=== PATIENT | female | born 1960 | race Caucasian/White ===

== ENCOUNTER 2024-03-31 12:24 | Emergency (ER) | payer OTHER, SELFPAY ==
[2024-03-31 12:45] VITALS: BP 159/101; PULSE 88; RESP 16; TEMP 37.1; O2SAT 99
--- NOTE | 2024-03-31 13:07 | ED.DENTAL ---
HPI - Dental/Oral General Chief complaint: Dental/Oral Stated complaint: right side toothache,nauseated Time Seen by Provider: 03/31/24 12:59 Source: patient and RN notes reviewed Mode of arrival: ambulatory Limitations: no limitations History of Present Illness HPI Narrative: Patient presents today complaining of right lower tooth and jaw pain x3 days. States she does have crown in this area as well as a chipped tooth that may be the culprit. Denies fever, shortness of breath, difficulty swallowing. She currently rates her pain 5/10 and has taken ibuprofen with some relief. She will call her dentist on Tuesday to schedule a follow-up appointment. Related Data Home Medications Medication Instructions Recorded Confirmed atorvastatin 20 mg tablet 20 mg PO DAILY 03/31/24 03/31/24 hydrochlorothiazide 25 mg tablet 25 mg PO DAILY 03/31/24 03/31/24 omeprazole 40 mg capsule,delayed 40 mg PO DAILY 03/31/24 03/31/24 release potassium chloride 10 mEq 10 meq PO DAILY 03/31/24 03/31/24 tablet,extended release(part/cryst) (Klor-Con M) Allergies Allergy/AdvReac Type Severity Reaction Status Date / Time Sulfa (Sulfonamide Allergy Intermediate Pruritic Verified 03/31/24 12:44 Antibiotics) rash Review of Systems Review of Systems: CONSTITUTIONAL: Denies body aches, fever, chills, or sweats. EYES: Denies visual changes, redness, or discharge. ENT: Denies rhinorrhea, congestion, sore throat, or otalgia.+ tooth and jaw pain CARDIOVASCULAR: Denies chest pain, palpitations, or edema. RESPIRATORY: Denies cough or dyspnea. GASTROINTESTINAL: Denies abdominal pain, nausea, vomiting, or diarrhea. GENITOURINARY: Denies dysuria or hematuria. SKIN: Denies rash, itching, or wounds. MUSCULOSKELETAL: Denies back pain, joint pain, or myalgia. NEUROLOGIC: Denies headache, numbness, tingling, or weakness. PSYCH: Denies depression or anxiety. [facility] Family History Family History Sibling Family history of malignant neoplasm Family history of malignant neoplasm of breast in first degree relative Family history of malignant neoplasm of ovary Mother Carcinoma of colon Family history of malignant neoplasm of breast in first degree relative Family history of malignant neoplasm of ovary Father FH myocardial infarction male first degree age known Grandparent Family history of malignant neoplasm of breast Social History Social History Smoking status: Never smoker Second hand tobacco smoke exposure: No Alcohol intake: current Comments At time of signature, I have reviewed and agree with nursing past medical, surgical, social and family history unless otherwise noted. Please see nursing chart for further information. There is no relevant family history pertinent to the presenting complaint Exam Narrative: GENERAL: Well-appearing, well-nourished, and in no acute distress. HEAD: Normocephalic, atraumatic. EYES: EOMI. No redness or drainage. Conjunctivae normal. ENT: Mucous membranes pink and moist. Tooth number 30 has a crown and 31 is chipped in the anterior portion. No surrounding erythema or edema of the gumline. No obvious periapical abscess noted. Tenderness to the right lower jaw line with scant edema. No trismus. NECK: Normal AROM. CHEST: No respiratory distress. EXTREMITIES: Normal range of motion. No edema. SKIN: Warm, dry, no rash. Capillary refill normal. Normal skin turgor. NEURO: No focal deficits. Alert and oriented x3. Gait steady. PSYCH: Normal affect. No signs of depression or anxiety. Course Course Level of Care: Express Care Visit Vital Signs Vital signs: Vital Signs Temperature 98.8 F 03/31/24 12:45 Pulse Rate 88 03/31/24 12:45 Respiratory Rate 16 03/31/24 12:45 Blood Pressure 159/101 H 03/31/24 12:45 Pulse Oximetry 99 03/31/24 12:45 Oxygen
== END 2024-03-31 13:14 | disposition home or self-care (01) ==
PROVIDERS: Emergency Provider Nurse Practitioner
DX: K08.89 Other specified disorders of teeth and supporting structures (principal)
CPT/HCPCS: 99203; G0463